=== PATIENT | male | born 1965 | race Caucasian/White ===

== ENCOUNTER 2017-01-19 08:44 | Emergency (ER) | payer OTHER ==
[~2017-01-19] VITALS: Ht 185.4 cm; Wt 105.4 kg
[2017-01-19] MEDS ORDERED: SERTRALINE HCL50 MG PO (09:07)
[2017-01-19] MEDS ORDERED: ZITHROMAX Z-PA250 MG PO (09:07)
[2017-01-19] MEDS ORDERED: PREDNISONE50 MG PO (09:09)
[2017-01-19 09:13] LABS: HEMATOCRIT 42.6 % (38.0-50.0); MCH 34.2 PG (29.0-34.0); MCHC 37.1 G/DL (30.0-36.0); MCV 92.2 FL (86-99); PLATELET COUNT 245 K/uL (156-360); RED BLOOD COUNT 4.62 M/uL (4.00-5.50); WHITE BLOOD COUNT 11.4 K/uL (4.1-10.2)
[2017-01-19 09:26] LABS: CHLORIDE 106 mEq/L (99-109); POTASSIUM 4.2 mEq/L (3.7-5.4); SODIUM 138 mEq/L (136-147)
[2017-01-19 09:28] LABS: GLUCOSE 95 mg/dL (70-99)
[2017-01-19 09:29] LABS: ANION GAP 10 MEQ/L (2-14)
[2017-01-19 09:31] LABS: GFR ESTIMATE (CALCULATED) > 59 mL/min/
[2017-01-19 09:35] LABS: TROP-I INTERPRETATION NEGATIVE; TROPONIN-I < 0.01 ng/mL (0.0-0.30)
[2017-01-19 09:45] LABS: UREA NITROGEN (BUN) 24 mg/dL (9-23)
[2017-01-19 11:43] LABS: TROP-I INTERPRETATION NEGATIVE; TROPONIN-I < 0.01 ng/mL (0.0-0.30)
[2017-01-19] MEDS ORDERED: XANAX0.5 MG PO (12:52)
[2017-01-19] MEDS ORDERED: VENTOLIN HFA18 GM IH (12:52)
[2017-01-19 13:31] VITALS: BP 111/72
== END 2017-01-19 13:32 | disposition home or self-care (01) ==
LOC: EME 08:44
PROVIDERS: Emergency Medicine
DX: R07.9 Chest pain, unspecified (principal); J40 Bronchitis, not specified as acute or chronic; Z79.52 Long term (current) use of systemic steroids
CPT/HCPCS: 71020; 80048; 84484; 85027; 85379; 93005; 99281; 99284